=== PATIENT | female | born 1990 | race African-American/Black ===

== ENCOUNTER 2018-11-27 12:23 | Emergency (ER) | payer OTHER ==
[~2018-11-27] VITALS: Ht 157.5 cm; Wt 61.0 kg
[~2018-11-27 12:23] MED LIST: AUGMENTIN500TAB PO
[2018-11-27 15:30] VITALS: BP 125/79
== END 2018-11-27 15:30 | disposition home or self-care (01) | DRG 605 ==
LOC: ED 12:23
DX: S60.212A Contusion of left wrist, initial encounter (principal); S60.512A Abrasion of left hand, initial encounter; V49.40XA Driver injured in collision with unspecified motor vehicles in traffic accident, initial encounter; W22.11XA Striking against or struck by driver side automobile airbag, initial encounter